=== PATIENT | male | born 1935 | race Caucasian/White ===

== ENCOUNTER 2018-08-24 23:15 | Inpatient (IN) ==
--- NOTE | 2018-08-24 23:36 | Emergency Department Note ---
Fall HPI - General Chief Complaint: Fall Stated Complaint: Fall Time Seen by Provider: 08/24/18 23:26 - History of Present Illness HPI Narrative: Patient states that he tripped and fell outside because it was dark. His complaint is to his left hip and his left knee but he does have a laceration at the base of the fifth digit also has a superficial abrasion to his left forehead he states there was no loss of consciousness but he did hit his head. He denies any neck pain. Patient is alert and oriented with no neurologic findings hip shows no deformities he has some superficial abrasions around the left knee and left footHis temperature is 97.5 the pulse is 95 respirations are 18 pulse ox 96 percent pain is an 06/18 - Related Data Home Medications Medication Instructions Recorded Confirmed Allopurinol [Zyloprim] 100 mg PO BID 08/24/18 08/24/18 Aspirin [Adult Low Dose Aspirin EC] 81 mg PO DAILY 08/24/18 08/24/18 Furosemide [Lasix] 40 mg PO BID 08/24/18 08/24/18 HYDROcodone/APAP 5/325MG [[place]wan 1 tab PO BID 08/24/18 08/24/18 5-325Mg] Insulin Detemir [Levemir] 0 unit SQ HS 08/24/18 08/24/18 Lisinopril [Zestril] 2.5 mg PO DAILY 08/24/18 08/24/18 Pravastatin [Pravachol] 40 mg PO HS 08/24/18 08/24/18 Warfarin [Coumadin] 4 mg PO DAILY 08/24/18 08/24/18 Zolpidem [Ambien] 5 mg PO HSP PRN 08/24/18 08/24/18 Allergies Allergy/AdvReac Type Severity Reaction Status Date / Time No Known Intolerances Allergy Unknown Verified 08/24/18 23:21 DIABETIC FEATURES Allergy Unknown Uncoded 04/12/15 11:56 No to Iodine Allergy Unknown Unknown Uncoded 04/12/15 11:56 No to Latex Allergy Unknown Uncoded 04/12/15 11:56 Review of Systems All systems ED: reviewed and negative except as stated. Constitutional: Reports: fever Musculoskeletal: Reports: as per HPI, other (Patient complaining of pain to his left knee and to his hip) Integumentary: Reports: as per HPI, other (Abrasions to the right foot and knee) Fall PMH - Past Medical History Medical history: Reports: DM, other (Prostate CA) Surgical history ED: Reports: other (Pacemaker, back, nephrectomy, prostate surgery) Family history: Reports: no significant family history - Social History smoking status: Never smoker Alcohol use: Reports: None Drug use: Reports: none Physical Exam Limitations: no limitations General appearance: alert Head: other (Abrasion to the left forehead) Eye: Present: normal appearance, PERRL ENT: normal exam, normal oropharynx, mucous membranes moist Neck: Present: normal inspection, full ROM, trachea midline Chest: Present: normal inspection, symmetric chest wall rise. Absent: tenderness Respiratory: Present: normal lung sounds bilaterally. Absent: respiratory distress, rales/crackles, wheezes Cardiovascular: Present: regular rate, normal rhythm, normal heart sounds. Absent: bradycardia, tachycardia, irregular rhythm Abdominal: Present: soft, normal bowel sounds. Absent: distention, tenderness, guarding, rebound, rigidity Shoulder: Present: normal inspection Arm: Present: normal inspection Elbow: Present: full ROM Forearm/Wrist: Present: normal inspection Hand: Present: normal inspection Hip/Pelvis: Present: normal inspection, tenderness. Absent: swelling, abrasion Upper leg: Present: normal inspection, full ROM. Absent: tenderness Knee: Present: tenderness, abrasion. Absent: swelling Lower leg: Present: normal inspection, full ROM. Absent: tenderness Ankle: Present: normal inspection, full ROM. Absent: tenderness Foot/toe: Present: abrasion, laceration (1 cm laceration of base of fifth toe) Neurovascular/Tendon: Present: normal capillary refill. Absent: pulse deficit Back: Present: normal inspection, full ROM Patient oriented to: Present: person, place, time Speech: Present: fluid speech Cranial nerves: EOM function (II, III, IV, ): Normal, facial sensation (V): Normal, facial palsy (VII): Normal, gag reflex (IX): Normal, spinal accessory function (XI): Normal, tongue deviation (XII): Normal Cerebellar function: normal gait Motor strength - LUE: 5/5 Motor strength - RUE: 5/5 Motor strength - LLE: 5/5 Motor strength - RLE: 5/5 Upper motor neuron exam: Babinski sign: Absent bilaterally Sensory exam upper extremity: Normal: light touch Sensory exam lower extremity: Normal: light touch DTR: 2+: patellar (L), patellar (R) Course Vital Signs Temperature 97.5 F 08/24/18 23:16 Pulse Rate 95 H 08/24/18 23:16 Respiratory Rate 18 08/24/18 23:16 Pulse Oximetry (%) 96 08/24/18 23:16 Temperature 97.5 F 08/24/18 23:16 Pulse Rate 90 08/25/18 01:15 Respiratory Rate 13 08/25/18 01:15 Blood Pressure 150/50 08/25/18 01:15 Pulse Oximetry (%) 98 08/25/18 01:15 Fall - MDM Narrative Medical decision making narrative: Patient has a fracture to the left hip. Chest x-ray was negative. Head CT neck CT is negative he x-rays are normal as well. EKG shows pacemaker. Lab tests are pending Dr. Claire contacted patient to be admitted to the hospitalists Dr. Whatley contacted Dr. report of all the laboratory tests first for admission - Lab Data Result diagrams: 08/25/18 01:00 08/25/18 01:00 Lab Results 08/24/18 Range/Units 23:35 POC Hct 36.0 L (41.0-55.0) % POC Sodium 139 (133-145) mmol/L POC Potassium 3.7 (3.3-5.1) mmol/L POC Chloride 104 (96-108) mmol/L POC Total CO2 22 (22-30) mmol/L POC BUN 37 H (8-23) mg/dl POC Creatinine 2.1 H (0.7-1.2) mg/dl POC Glucose 214 H (70-105) mg/dL POC WB Ioniz Calcium 1.08 L (1.16-1.32) mmol/L Disposition Pt seen by CRIME SCENE ANALYST/PA only: No Clinical Impression: Closed left hip fracture Disposition: Xfer As Inpt ([facility]) Condition: Fair Instructions: Hip Fracture (ED) Referrals: Joaquin Serrano DO [Primary Care Provider] -
[2018-08-25] MEDS ORDERED: ONDANSETRON 4 MG/2 ML VIAL IV ONE ×2 (01:39→14:40)
[2018-08-25] MEDS ORDERED: HYDROmorphone 2 MG/ML VIAL IV ONE (01:39)
[2018-08-25 02:14] LABS: Basophils # (Auto) 0 K/mcL (0.0-0.3); Basophils % (Auto) 0.2 % (0.0-2.0); Eosinophils # (Auto) 0.1 K/mcL (0.0-0.7); Eosinophils % (Auto) 0.4 % (0.0-7.0); Granulocytes % (Auto) 87.9 % (38.0-78.0); Lymphocytes # (Auto) 0.7 K/mcL (1.5-4.8); Mean Cell Volume 95.3 fL (80.0-100.0); Mean Corpuscular HGB Conc 33.2 g/dL (31.0-36.0); Mean Corpuscular Hemoglobin 31.6 pg (26.0-34.0); Monocytes # (Auto) 1.2 K/mcL (0.1-0.9); Monocytes % (Auto) 7.5 % (1.0-12.0); Platelet Count 229 K/mcL (140-440); RBC 4.21 M/mcL (4.50-5.90); Red Cell Distribution Width 15.2 % (11.5-14.5)
[2018-08-25 02:41] LABS: ALT/SGPT 27 U/l (0-40); Albumin 4.4 gm/dL (3.2-5.2); Albumin/Globulin Ratio 2.2 (1.0-2.3); Alkaline Phosphatase 81 U/L (39-117); Blood Urea Nitrogen 37 mg/dl (8-23)
[2018-08-25] MEDS ORDERED: ALBUTEROL SULFATE 2.5 MG/3 ML NEBULIZER NEB PRN (03:20)
[2018-08-25] MEDS ORDERED: NALOXONE HCL 0.4 MG/ML VIAL IV PRN ×2 (03:20→15:47)
[2018-08-25] MEDS ORDERED: MAGNESIUM HYDROXIDE 30 ML ORAL.SUSP PO PRN (03:20)
[2018-08-25] MEDS ORDERED: BISACODYL 10 MG SUPP.RECT PR PRN (03:20)
[2018-08-25] MEDS ORDERED: ONDANSETRON 4 MG/2 ML VIAL IV PRN ×2 (03:20→15:47)
[2018-08-25] MEDS ORDERED: DEXTROSE 50% 50 ML VIAL IV PRN (03:20)
[2018-08-25] MEDS: HYDROmorphone 2 MG/ML VIAL IV PRN ×2 (04:04→13:02)
[2018-08-25] MEDS: oxyCODONE HCL 5 MG TABLET PO PRN ×2 (04:05→09:37)
[2018-08-25 04:55] LABS: Appearance,Urine CLEAR; Bacteria,Urine 0 /hpf (0); Bilirubin,Urine NEG (NEG); Color,Urine STRAW; Glucose,Urine (UA) NEGATIVE (NEG); Leukocyte Esterase,Urine NEG /uL (NEG); Mucus,Urine FEW /hpf (0); Protein,Urine 30 mg/dL (NEG); Urine Blood 0.03 mg/dL (<0.03); Urine Hyaline Cast 3 /lpf (0-2); Urine RBC 2 /hpf (0-1); Urine Squamous Epithelial Cell 0 /hpf (0-4); Urine WBC 1 /hpf (0-4); Urobilinogen,Urine NEG (NEG)
[2018-08-25] MEDS: 0.9 % SODIUM CHLORIDE 10 ML SYRINGE IV SCH ×3 (05:37→21:33)
[2018-08-25] MEDS: INSULIN LISPRO 1 UNIT/0.01 ML UNIT SQ SCH ×3 (05:37→17:09)
--- NOTE | 2018-08-25 07:48 | Consultation ---
DATE OF CONSULTATION: 08/25/2018 REQUESTING PHYSICIAN: Dylon Barton M.D. CONSULTING PHYSICIAN: Raymond Claire M.D. REASON FOR CONSULTATION: Left hip fracture. HISTORY: This is an 82-year-old male who yesterday evening ended up tripping in the dark and injured his left hip. He also had some other superficial lacerations and abrasions. He denies loss of consciousness, just complaining of left hip pain and inability to bear weight. He was brought in to the emergency department and x-rays taken which showed a femoral neck fracture. PAST MEDICAL HISTORY: Diabetes, cardiac arrhythmia, hypercholesterolemia, history of prostate cancer, and gout. PAST SURGICAL HISTORY: Pacemaker placement, back surgery, nephrectomy, and prostate surgery. MEDICATIONS: 1. Allopurinol. 2. Aspirin 81 mg. 3. Furosemide. 4. Hydrocodone. 5. Insulin. 6. Lisinopril. 7. Warfarin. 8. Zolpidem. 9. Pravastatin. ALLERGIES: No known drug allergies. SOCIAL HISTORY: No tobacco use. No alcohol use or drug use. REVIEW OF SYSTEMS: Negative for chest pain, shortness of breath, loss of consciousness, fever, chills, bloody stool or urine. PHYSICAL EXAMINATION: VITAL SIGNS: This morning his temperature is 97.5, pulse 76, respirations 12, blood pressure 128/62, pulse ox 97% on room air. GENERAL: He appears his stated age in no acute distress. He is oriented to person, place. Mood and affect are appropriate. HEART: Regular rate and rhythm. LUNGS: Clear. EXTREMITIES: His bilateral upper extremities and right lower extremity show no evidence of significant injury other than multiple superficial skin abrasions. All three are normal to inspection, range of motion, stability and strength. His left lower extremity shows shortening and some external rotation. He has limited range of motion of the hip secondary to pain. There is gross instability. His strength is 3/5 distally. Sensation is intact to light touch to all four extremities and pedal pulses are palpable. IMAGING: His x-rays reviewed show a displaced left femoral neck fracture. IMPRESSION: Displaced left femoral neck fracture, midcervical in an 82-year-old male who is otherwise ambulatory. PLAN: I recommend we proceed with open treatment of the left femoral neck fracture with prosthetic hemiarthroplasty. Risks include, but not limited to, bleeding, possibly requiring transfusion; infection, possibly requiring implant removal, prolonged IV antibiotics; injury to nerves, blood vessels, other surrounding structures; anesthetic risks; leg length discrepancy; dislocation; fracture; DVT and pulmonary embolus risks; and the possibility of needing revision surgery. He understands and wished to proceed. We will proceed today if cleared by Hospitalist. PADDY:allison Job ID: [id number] Doc ID: [id number] Raymond Claire MD
--- NOTE | 2018-08-25 07:54 | Internal Med History&Physical ---
Medical - H&P: HPI Patient information: Note initiated : 08/25/18 at 7:52 am Service Date, if different from initiated Date: [] Patient: Jose Chanel 82 y/o M admitted on 08/25/18 for Fall. Chief Complaint: [] History of present illness: Mr. Chanel is a 82 year old M with h/o multiple medical issues, [facility]. He notes he fell yesterday on the curb, with his dog, hit his head, but did not loose consciousness. Neighbors called EMS and he came to the ER; He denies any dizziness, bowel bladder incontinence or any prodromal symptoms before the fall. The patient in the ER was afebrile, hemodynamically stable. Workup showed he had a left femur neck fracture, admitted to the hospital for further management. The patient does have a h/o afib, s/p ablation, supposed to be on coumadin, h/o CHF? on lasix bid, CKD , DM on insulin, pt denies any h/o CAD/ [place], no h/o CVA or TIA. Patient notes he can walk upto one mile on a flat surface, but usually walks approximately 2 blocks a day, able to walk up a block with incline if not too steep. No recent chest pain,shortness of breath. His Labs in ER show elevated wbc count, at 16K, hb 13.3, INR 1.1, sodium 141, potassium 3.9 BUN 37, creatinine 2.0, glucose 178. UA negative for UTI. Chest x-ray suggestive of a bibasilar atelectasis, EKG shows paced rhythm. I do not have the official reports about the neck CT or the head CT but according to the ER provider they have been interpreted as negative. Patient wishes to be full code All systems: reviewed and no additional remarkable complaints except as stated ( chr back pain,) Medical - H&P: PMH Medical history: AFib, s/p ablation, s/p pacemaker CHF CKD DM on [id number] HTN HLD Chr back pain h/o Ca Prostate. h/o Gout GABRIELA on cpap Surgical history: h/o Kidney donation to daughter. Family history: reviewed and not pertinent Social history: lives by self, recently non smoker, no etoh, no recreational drug use. Medical - H&P: Meds Home Medications Medication Instructions Recorded Confirmed Type Allopurinol [Zyloprim] 100 mg PO BID 08/24/18 08/24/18 History Aspirin [Adult Low Dose Aspirin EC] 81 mg PO DAILY 08/24/18 08/24/18 History Furosemide [Lasix] 40 mg PO BID 08/24/18 08/24/18 History HYDROcodone/APAP 5/325MG [[place] 1 tab PO BID 08/24/18 08/24/18 History 5-325Mg] Insulin Detemir [Levemir] 0 unit SQ HS 08/24/18 08/24/18 History Lisinopril [Zestril] 2.5 mg PO DAILY 08/24/18 08/24/18 History Pravastatin [Pravachol] 40 mg PO HS 08/24/18 08/24/18 History Warfarin [Coumadin] 4 mg PO DAILY 08/24/18 08/24/18 History Zolpidem [Ambien] 5 mg PO HSP PRN 08/24/18 08/24/18 History Fentanyl 12.5 mcg TD 08/25/18 History Allergies Allergy/AdvReac Type Severity Reaction Status Date / Time No Known Intolerances Allergy Unknown Verified 08/24/18 23:21 DIABETIC FEATURES Allergy Unknown Uncoded 04/12/15 11:56 No to Iodine Allergy Unknown Unknown Uncoded 04/12/15 11:56 No to Latex Allergy Unknown Uncoded 04/12/15 11:56 Medical - H&P: Exam - Constitutional Vitals: Temp Pulse Resp BP Pulse Ox 97.5 F 76 12 128/62 97 08/25/18 06:57 08/25/18 06:57 08/25/18 06:57 08/25/18 06:57 08/25/18 06:57 Exam: GENERAL: The patient is a well-developed, well-nourished in no apparent distress. Is alert and oriented x3. VITAL SIGNS: Reviewed and as noted elsewhere. HEENT: Head is normocephalic and atraumatic. Extraocular muscles are intact. Pupils are equal, round, and reactive to light. Nares appeared normal. Mouth appears any without lesions. Mucous membranes are dry. NECK: Normal to inspection, Supple, No lymphadenopathy or thyromegaly. LUNGS: Air entry equal on both sides, no wheezing, crackles or rhonchi noted. No accessory muscles of respiration HEART: Regular rate and rhythm normal, S1 and S2 heard, no Gallop, S3 or Rub Noted, No Gross murmur heard. ABDOMEN: Soft, nontender, and nondistended. Positive bowel sounds. No hepatosplenomegaly was noted. EXTREMITIES: No cyanosis, clubbing, rash, lesions or edema. NEUROLOGIC: Cranial nerves II through XII are grossly intact. Motor and Sensory System Grossly Intact PSYCHIATRIC: Normal affect, Normal Mood. Appropriate Behavior. SKIN: No ulceration or wounds noted, No jaundice, No rash noted. Medical - H&P: Reslt - Labs CBC & Chem 7: 08/25/18 01:00 08/25/18 01:00 Labs: Short CBC 08/25/18 Range/Units 01:00 WBC 16.7 H (4.5-11.0) K/mcL Hgb 13.3 L (13.5-16.5) g/dL Hct 40.1 L (41.0-55.0) % Plt Count 229 (140-440) K/mcL BMP 08/25/18 01:00 Sodium 141 Potassium 3.9 Chloride 103 Carbon Dioxide 24 BUN 37 H Creatinine 2.0 H Glucose 178 H Calcium 9.4 Liver Function 08/25/18 Range/Units 01:00 Total Bilirubin 1.4 H (0.0-1.0) mg/dL AST 22 (0-37) U/l ALT 27 (0-40) U/l Alkaline Phosphatase 81 (39-117) U/L Albumin 4.4 (3.2-5.2) gm/dL Urine 08/25/18 Range/Units 04:00 Urine Color Straw Urine Appearance Clear Urine pH 6.0 (5.0-9.0) Ur Specific [place] 1.010 (1.000-1.035) Urine Protein 30 A (NEG) mg/dL Urine Glucose (UA) Negative (NEG) mg/dL Medical - H&P: A/P - Narrative A/P Narrative: A/P Acute left femur neck fracture- Ortho consulted, Management per them, likely surgery today. Pre op Risk assessment- RCRI is 3, pt has no active symptoms to warrant emergent cardiac evaluation. MET score is > 4, Given age, comorbidities, patient remains high risk, no further optimization is needed. Afib- ON coumadin with subtherapeutic INR, will need to reinitiate coumadin at discharge, should also cover for post op DVT prophylaxis. DM- on insulin, glucose well controlled, this AM was low, start on slow d5 drip to keep glucose level up and pt well hydrated. CKD- h/o kidney donor, single kidney, baseline creat unknown, for now, IVF, avoid nephrotoxic drugs, avoid hypotensive epidsodes in the periop period CHF- Patient is on lasix 40mg bid, no e/o fluid overload, monitor, hold lasix for now, resume after surgery if labs are stable GABRIELA- cpap. CHr Back pain- resume home meds once verified for chr pain. CA prostate/ HLD/ HTN/ - Resume home meds as appropriate. DVT SCD for now, enoxaparin and coumadin post op. Full code NPO for now.
[2018-08-25] MEDS ORDERED: DEXTROSE 5%-1/2NS W/20MEQ KCL 1,000 ML IV SCH (08:00)
--- NOTE | 2018-08-25 08:06 | Cat Scan Report ---
History: Fell with head and neck injuries TECHNIQUE: The brain was imaged without contrast at 2.5 mm intervals. The radiation exposure was limited using dose reduction technology. FINDINGS: The bone windows show no skull fracture. There is no intracranial hemorrhage, cerebral edema, infarct or mass effect. There is mild atrophy. This is most apparent along the posterior superior aspect of the cerebellum. Patchy areas of decreased attenuation are present in the white matter due to age-related ischemia or degeneration. Physiologic calcifications have formed in the globus pallidus. Ventricles are normal in size allowing for atrophy. IMPRESSION: No evidence of acute head injury Age-related degenerative changes Interpreted and Authenticated by: Josh Mckeon 08/25/18
--- NOTE | 2018-08-25 08:13 | Cat Scan Report ---
History: Fell with neck injury TECHNIQUE: The neck was imaged without contrast from the skull base through the thoracic inlet. Sagittal, coronal and oblique axial reformatted images were created. Radiation exposure was limited using dose reduction technology. FINDINGS: The cervico-occipital junction is normal. No fracture is present and there is no paraspinal hematoma. Advanced degenerative changes are present. There is arthritis at the articulation of the odontoid and anterior ring of C1. The C2-3 disc space is normal. The C3-4 disc is severely narrowed and degenerated. There are spurs along the posterior border of the disc protruding into the central canal and spurring of the uncinate processes resulting in mild central canal stenosis and moderate stenosis of both neural foramina. C4-5 disc is severely narrowed and degenerated and there medium-size spurs along the posterior border. This is causing moderate central canal stenosis. There is also moderate stenosis of both neural foramina due to spurs. C5-6 disc is moderate to severely narrowed and degenerated. There are medium-size posterior spurs and there is also spur formation arising from the uncinate processes. This is causing moderate spinal canal stenosis and severe stenosis of both neural foramina, right worse than left. The C6-7 disc is normal in height. There is 2 mm grade 1 spondylolisthesis due to arthritis in the facets. There is mild central canal stenosis and mild stenosis of both neural foramina. C7-T1 disc space is mildly narrowed but there is no significant spur formation. 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
--- NOTE | 2018-08-25 08:17 | XRay Report ---
HISTORY: Fell FINDINGS: No acute fracture or dislocation are present. A subtle contour deformity is seen in the neck of the fibula. This may be from an old healed fracture. There is mild narrowing of the medial joint compartment but there is no associated spur formation or bone erosion. Lateral joint compartment is normal in width but there is mild chondrocalcinosis in the lateral meniscus. The patellofemoral joint space is normal. There is no joint effusion. There are vascular calcifications posterior to the knee. IMPRESSION: No acute fracture Interpreted and Authenticated by: Josh Mckeon 08/25/18
--- NOTE | 2018-08-25 08:18 | XRay Report ---
HISTORY: Fell FINDINGS: There is an acute transverse fracture of the left femoral neck. There is mild impaction at the fracture site and upper retraction of the shaft of the femur. The femoral head is normal and well positioned within the acetabulum. Multiple radiation implant seeds are present in the prostate. No lytic or blastic metastasis are present. There is degenerative disc disease and arthritis at L4-5 and L5-S1. There are clips in the left side of the pelvis. Numerous vascular calcifications are present in both sides of the pelvis. IMPRESSION: Fractured left femoral neck Interpreted and Authenticated by: Josh Mckeon 08/25/18
--- NOTE | 2018-08-25 08:20 | XRay Report ---
HISTORY: Hip fracture and preop for hip surgery FINDINGS: The lungs are clear and well expanded. The heart size and pulmonary vasculature are normal. There is a well-positioned pacemaker with the lead in the right ventricle. The mediastinum, bobo and pleura are normal. The right acromioclavicular joint is widened. The clavicle remains normally aligned with the acromion. There is moderate arthritis in the left acromioclavicular joint. IMPRESSION: No acute cardiopulmonary disease right acromioclavicular joint of undetermined age Interpreted and Authenticated by: Josh Mckeon 08/25/18
[2018-08-25] MEDS ORDERED: ceFAZolin 1 GM VIAL IV SCH (14:00)
[2018-08-25] MEDS ORDERED: fentaNYL 100 MCG/2 ML VIAL IV ONE (14:40)
[2018-08-25] MEDS ORDERED: DEXAMETHASONE 10 MG/ML VIAL IV ONE (14:40)
[2018-08-25] MEDS ORDERED: TRANEXAMIC ACID 1,000 MG/10 ML VIAL IV ONE (14:40)
[2018-08-25] MEDS ORDERED: MIDAZOLAM 2 MG/2 ML VIAL IV ONE (14:40)
[2018-08-25] MEDS ORDERED: SUCCINYLCHOLINE 20 MG/ML ML IV ONE (14:40)
[2018-08-25] MEDS ORDERED: LIDOCAINE HCL/PF 100 MG/5 ML SYRINGE IV ONE (14:40)
[2018-08-25] MEDS ORDERED: PROPOFOL 200 MG/20 ML VIAL IV ONE (14:40)
[2018-08-25] MEDS ORDERED: METOPROLOL TARTRATE 5 MG/5 ML VIAL IV ONE (14:40)
[2018-08-25] MEDS ORDERED: IPRATROPIUM/ALBUTEROL 3 ML AMPUL.NEB NEB PRN (15:47)
[2018-08-25] MEDS ORDERED: diphenhydrAMINE 50 MG/ML VIAL IV PRN (15:47)
[2018-08-25] MEDS ORDERED: MEPERIDINE 25 MG/ML SYRINGE IV PRN (15:47)
[2018-08-25] MEDS ORDERED: METOPROLOL TARTRATE 5 MG/5 ML VIAL IV PRN (15:47)
[2018-08-25] MEDS ORDERED: FLUMAZENIL 0.1 MG/ML ML IV PRN (15:47)
[2018-08-25] MEDS ORDERED: ATROPINE SULFATE 0.4 MG/ML VIAL IV PRN (15:47)
[2018-08-25] MEDS ORDERED: PROMETHAZINE 25 MG/ML VIAL IV PRN (15:47)
[2018-08-25] MEDS ORDERED: ACETAMINOPHEN 1,000 MG/100 ML BOTTLE IV ONE (15:47)
[2018-08-25] MEDS ORDERED: HYDROmorphone 2 MG/ML VIAL IV PRN (15:47)
[2018-08-25] MEDS ORDERED: ePHEDrine 50 MG/ML AMPUL IV PRN (15:47)
[2018-08-25] MEDS ORDERED: METHOCARBAMOL 1,000 MG/10 ML VIAL IV PRN (15:47)
--- NOTE | 2018-08-25 15:49 | Brief Operative Note ---
Date of procedure: 08/25/18 Pre-op diagnosis: Left mid cervical femoral neck fracture Post-op diagnosis: same Procedure: Open treatment left femoral neck fracture with prosthetic hemiarthroplasty Grafts/Implants: Yes (Depuy Actis 7 std stem, +5 54 unipolar head) Anesthesia: spinal, GLMA Findings: fractured femoral neck Complications: none Surgeon: Raymond Claire Dental Financial Coordinator: Adrian Meade Estimated blood loss (cc): 100 Specimens Removed/Pathology: none sent Condition: stable Disposition: PACU
[2018-08-25] MEDS ORDERED: BENZOCAINE/MENTHOL 1 LOZENGE PO PRN (15:50)
[2018-08-25] MEDS ORDERED: FLEETS ADULT ENEMA PR PRN (15:50)
[2018-08-25] MEDS ORDERED: 0.9 % SODIUM CHLORIDE 1,000 ML IV SCH (16:00)
[2018-08-25] MEDS ORDERED: LACTATED RINGERS 1,000 ML IV SCH (16:00)
[2018-08-25] MEDS: fentaNYL 100 MCG/2 ML VIAL IV PRN ×3 (16:09→16:26)
--- NOTE | 2018-08-25 16:56 | XRay Report ---
History: Postop hemiarthroplasty following hip fracture FINDINGS: Patient has a well positioned unipolar left hip prosthesis. There is no fracture. Numerous radiation implant seeds are present in the prostate. No lytic or blastic metastasis are detected. IMPRESSION: Well-positioned left hip prosthesis Interpreted and Authenticated by: Josh Mckeon 08/25/18
[2018-08-25] MEDS: ceFAZolin 1 GM VIAL IV SCH (21:24)
[2018-08-25] MEDS: DOCUSATE SODIUM 100 MG CAPSULE PO SCH (21:25)
[2018-08-25] MEDS: SENNOSIDES 1 TABLET PO SCH (21:25)
[2018-08-25] MEDS ORDERED: INSULIN LISPRO 1 UNIT/0.01 ML UNIT SQ SCH (22:00)
[2018-08-25] MEDS ORDERED: WARFARIN 4 MG TABLET PO ONE (22:00)
[2018-08-25] MEDS ORDERED: INSULIN LISPRO 1 UNIT/0.01 ML UNIT SQ ONE (22:21)
[2018-08-26] MEDS: oxyCODONE HCL 5 MG TABLET PO PRN ×5 (00:22→23:48)
[2018-08-26] MEDS: HYDROmorphone 2 MG/ML VIAL IV PRN ×2 (00:57→12:02)
[2018-08-26] MEDS: 0.9 % SODIUM CHLORIDE 10 ML SYRINGE IV SCH ×3 (05:50→20:28)
[2018-08-26] MEDS: ceFAZolin 1 GM VIAL IV SCH (05:50)
[2018-08-26] MEDS ORDERED: INSULIN LISPRO 1 UNIT/0.01 ML UNIT SQ SCH (07:30)
--- NOTE | 2018-08-26 07:54 | Orthopedic Progress Note ---
Orthopedics - Auxillary Note - Subjective Patient Information: Note initiated : 08/26/18 at 7:53 am Service Date, if different from initiated Date: [] Patient: Jose Chanel 82 y/o M admitted on 08/25/18 for Fall. Chief Complaint: Mild to moderate L hip pain. Mild confusion. bandages c/d/i nvi-distal Vital Signs Temp Pulse Resp BP Pulse Ox 08/26/18 07:34 97.9 F 70 16 147/64 96 08/26/18 04:00 98.0 F 72 16 169/71 100 08/25/18 22:44 98.7 F 70 16 148/60 100 08/25/18 19:50 97.5 F 70 16 140/62 95 08/25/18 18:51 75 139/65 93 08/25/18 18:22 72 129/55 08/25/18 18:00 75 139/62 99 08/25/18 17:20 70 135/58 96 08/25/18 17:05 70 134/58 98 08/25/18 16:50 98.8 F 70 14 147/64 95 08/25/18 16:45 98.9 F 77 21 157/62 94 08/25/18 16:35 98.8 F 79 18 152/64 94 08/25/18 16:25 98.4 F 79 13 144/60 95 08/25/18 16:20 98.8 F 80 12 143/54 94 08/25/18 16:15 76 17 167/63 91 08/25/18 16:10 78 18 156/68 94 08/25/18 16:07 98.2 F 77 16 130/77 99 08/25/18 11:35 98.2 F 77 12 128/69 96 Intake and Output 08/25/18 08/26/18 08/26/18 21:59 05:59 13:59 Intake Total 1950 / 1950 1450 / 1450 Output Total 1100 / 1100 625 / 625 Balance 850 / 850 825 / 825 Intake: IV 350 / 350 1000 / 1000 Dextrose 5%-1/2Ns W/20Meq KCl 1 250 / 250 ,000 ml @ 50 mls/hr IV .Q20H [facility] Rx#:[id number] Oral 450 / 450 IV - Manual Only 1600 / 1600 Output: Urine Catheter Amount 1000 / 1000 625 / 625 Estimated Blood Loss 100 / 100 Other: Urine Appearance Clear Uretheral (Jacobo) Clear Urine Color Bright Yellow Bright Yellow Uretheral (Jacobo) Bright Yellow Urine Odor Normal Normal Uretheral (Jacobo) Normal # Bowel Movements 0 Weight 196 lb 192 lb 8 oz Laboratory Results - last 24 hr 08/25/18 08/26/18 08/26/18 08:00 04:05 04:05 Hgb 12.3 L Hct 36.5 L PT 16.1 H INR 1.3 H Procalcitonin 0.16 s/p l glen hip arthroplasty-stable mobilize with PT discharge to SNF 1-2 days per hospitalist
[2018-08-26] MEDS: INSULIN LISPRO 1 UNIT/0.01 ML UNIT SQ SCH ×4 (08:04→20:28)
[2018-08-26] MEDS: DOCUSATE SODIUM 100 MG CAPSULE PO SCH ×2 (08:04→20:30)
[2018-08-26 08:49] LABS: Basophils # (Auto) 0 K/mcL (0.0-0.3); Basophils % (Auto) 0 % (0.0-2.0); Eosinophils # (Auto) 0 K/mcL (0.0-0.7); Eosinophils % (Auto) 0 % (0.0-7.0); Granulocytes % (Auto) 85.5 % (38.0-78.0); Lymphocytes # (Auto) 1.1 K/mcL (1.5-4.8); Lymphocytes % (Auto) 5.7 % (15.5-49.0); Mean Cell Volume 97.3 fL (80.0-100.0); Mean Corpuscular HGB Conc 32.9 g/dL (31.0-36.0); Monocytes # (Auto) 1.7 K/mcL (0.1-0.9); Monocytes % (Auto) 8.8 % (1.0-12.0); Platelet Count 249 K/mcL (140-440); RBC 4.21 M/mcL (4.50-5.90); Red Cell Distribution Width 15.7 % (11.5-14.5)
[2018-08-26 09:09] LABS: Blood Urea Nitrogen 36 mg/dl (8-23)
[2018-08-26] MEDS ORDERED: WARFARIN 4 MG TABLET PO ONE (14:00)
[2018-08-26] MEDS ORDERED: ZOLPIDEM 5 MG TABLET PO PRN (15:46)
--- NOTE | 2018-08-26 15:50 | Internal Med Progress Note ---
Medical - PN: Subj Patient information: Note initiated : 08/26/18 at 3:48 pm Service Date, if different from initiated Date: [] Patient: Jose Chanel a 82 y/o M admitted on 08/25/18 for Fall/Left Femur Neck Fracture. Chief Complaint: [] Interval history: Mr. Chanel is a 82 year old M with h/o multiple medical issues, presents to the ER overnight after a mech fall. He notes he fell yesterday on the curb, with his dog, hit his head, but did not loose consciousness. Neighbors called EMS and he came to the ER; He denies any dizziness, bowel bladder incontinence or any prodromal symptoms before the fall. The patient in the ER was afebrile, hemodynamically stable. Workup showed he had a left femur neck fracture, admitted to the hospital for further management. The patient does have a h/o afib, s/p ablation, supposed to be on coumadin, h/o CHF? on lasix bid, CKD , DM on insulin, pt denies any h/o CAD/ ME, no h/o CVA or TIA. Patient notes he can walk upto one mile on a flat surface, but usually walks approximately 2 blocks a day, able to walk up a block with incline if not too steep. No recent chest pain,shortness of breath. His Labs in ER show elevated wbc count, at 16K, hb 13.3, INR 1.1, sodium 141, potassium 3.9 BUN 37, creatinine 2.0, glucose 178. UA negative for UTI. Chest x-ray suggestive of a bibasilar atelectasis, EKG shows paced rhythm. I do not have the official reports about the neck CT or the head CT but according to the ER provider they have been interpreted as negative. Patient wishes to be full code 08/26 Patient seen and examined, no acute overnight events. Creatinine slightly worse 2.0-2.2. Patient overall doing well. Mildly confused. Cooperative with care. Home medications resumed Pertinent ROS: Denies headache, dizziness Denies chest pain, palpitations Denies cough or shortness of breath Denies abdominal pain, nausea or vomiting. - Constitutional Vitals: Vital Signs Temp Pulse Resp BP Pulse Ox 98.0 F 74 16 135/69 95 08/26/18 11:36 08/26/18 11:36 08/26/18 07:34 08/26/18 11:36 08/26/18 11:36 Period Temp Pulse Resp BP Sys/Payne Pulse Ox Last 24 Hr 97.5 F-98.9 F 70-80 12-21 129-169/54-77 91-100 Intake and Output 08/26/18 08/26/18 08/26/18 05:59 13:59 21:59 Intake Total 1450 / 1450 920 / 920 Output Total 625 / 625 600 / 600 Balance 825 / 825 320 / 320 Weight 192 lb 8 oz 192 lb 8 oz Patient Weight 08/27/18 05:59 Weight 192 lb 8 oz Intake & Output: Intake & Output 08/26/18 08/26/18 08/26/18 05:59 13:59 21:59 Intake Total 1450 / 1450 920 / 920 Output Total 625 / 625 600 / 600 Balance 825 / 825 320 / 320 Weight 192 lb 8 oz 192 lb 8 oz Intake: IV 1000 / 1000 Oral 450 / 450 920 / 920 Output: Urine Catheter Amount 625 / 625 600 / 600 Other: Meal Breakfast Percent of Meal Consumed 100% Urine Appearance Uretheral (Jacobo) Clear Urine Color Bright Yellow Pale Uretheral (Jacobo) Pale Urine Odor Normal Normal Uretheral (Jacobo) Normal # Bowel Movements 0 Exam: Constitutional; Afebrile, cooperative, alert, not in distress. Eyes- No icterus, , No periorbital swelling Ears- Ext ear normal, hearing normal to conversation. Neck- Midline trachea, supple Respiratory system: Air Entry equal on both sides, No crackles or wheezing, no rhonchi. CVS- Rate rhythm regular, S1,S2 heard, no gallop, no rub. 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 Medical - PN: Obj Da - Labs CBC & Chem 7: 08/26/18 08:00 08/26/18 08:00 Labs: Abnormal Lab Results 08/26/18 08/26/18 08/26/18 08:00 08:00 04:05 WBC 19.2 H RBC 4.21 L Hgb Hct POC Hct RDW 15.7 H Gran % 85.5 H Lymph % (Auto) 5.7 L Gran # 16.4 H Lymph # (Auto) 1.1 L [place] # (Auto) 1.7 H PT 16.1 H INR 1.3 H Carbon Dioxide 16 L Anion Gap 23.0 H POC BUN BUN 36 H Creatinine 2.2 H POC Creatinine Glucose 221 H POC Glucose POC WB Ioniz Calcium Total Bilirubin Globulin Urine Protein Urine Occult Blood Urine RBC Hyaline Casts 08/26/18 08/25/18 08/25/18 04:05 04:00 01:00 WBC RBC Hgb 12.3 L Hct 36.5 L POC Hct RDW Gran % Lymph % (Auto) Gran # Lymph # (Auto) [place] # (Auto) PT INR Carbon Dioxide Anion Gap POC BUN BUN 37 H Creatinine 2.0 H POC Creatinine Glucose 178 H POC Glucose POC WB Ioniz Calcium Total Bilirubin 1.4 H Globulin 2.0 L Urine Protein 30 A Urine Occult Blood 0.03 A Urine RBC 2 H Hyaline Casts 3 H 08/25/18 08/25/18 08/24/18 01:00 01:00 23:35 WBC 16.7 H RBC 4.21 L Hgb 13.3 L Hct 40.1 L POC Hct 36.0 L RDW 15.2 H Gran % 87.9 H Lymph % (Auto) 4.0 L Gran # 14.7 H Lymph # (Auto) 0.7 L [place] # (Auto) 1.2 H PT 14.7 H INR Carbon Dioxide Anion Gap POC BUN 37 H BUN Creatinine POC Creatinine 2.1 H Glucose POC Glucose 214 H POC WB Ioniz Calcium 1.08 L Total Bilirubin Globulin Urine Protein Urine Occult Blood Urine RBC Hyaline Casts Meds: Medications Acetaminophen (Tylenol) 650 mg PO Q6HP PRN PRN Reason: PAIN/FEVER > 101 Albuterol Sulfate (Ventolin) 2.5 mg NEB Q2HP PRN PRN Reason: Shortness Of Breath Allopurinol (Zyloprim) 100 mg PO BID TARUN Bisacodyl (Dulcolax) 10 mg ND Q2-3DAYS PRN PRN Reason: Constipation Dextrose (Dextrose 50%) 0 ml IV UD PRN PRN Reason: Hypoglycemia Diagnostic Test (Pha) (Accu-Chek) 1 each FS ACHS [facility] Last Admin: 08/26/18 11:45 Dose: 1 each Docusate Sodium (Colace) 100 mg PO BID [facility] Last Admin: 08/26/18 08:04 Dose: 100 mg Furosemide (Lasix) 40 mg PO BID [facility] Hydromorphone HCl (Dilaudid) 0.5 mg IV Q2HP PRN PRN Reason: PAIN LEVEL > 6 Last Admin: 08/26/18 12:02 Dose: 0.5 mg Insulin Human Lispro (Humalog) 0 unit SQ ACHS [facility]; Protocol Last Admin: 08/26/18 11:55 Dose: 6 unit Lisinopril (Zestril) 2.5 mg PO DAILY [facility] Magnesium Hydroxide (Milk Of Magnesia) 30 ml PO DAILYP PRN PRN Reason: Constipation Naloxone HCl (Narcan) 0.1 mg IV Q2MIN PRN PRN Reason: Opiate Reversal Non-Formulary Medication (Aspirin [Adult Low Dose Aspirin Ec]) 81 mg PO DAILY [facility] Non-Formulary Medication (Insulin Detemir [Levemir]) 49 unit SQ HS TARUN Ondansetron HCl (Zofran) 4 mg IV Q6HP PRN PRN Reason: Nausea And Vomiting Oxycodone HCl (Roxicodone) 5 mg PO Q4HP PRN PRN Reason: PAIN LEVEL 3-6 Last Admin: 08/26/18 09:53 Dose: 5 mg Pravastatin Sodium (Pravachol) 40 mg PO HS [facility] Senna (Senokot) 2 tab PO HS [facility] Last Admin: 08/25/18 21:25 Dose: 2 tab Sodium Biphosphate/Sodium Phosphate (Fleets Adult) 1 dose ND Q3-4DAYS PRN PRN Reason: Constipation Sodium Chloride (Saline Flush) 10 ml IV Q8 [facility] Last Admin: 08/26/18 05:50 Dose: 10 ml Throat Lozenges (Cepacol) 1 lozenge PO PRN PRN PRN Reason: Sore Throat Warfarin Sodium (Coumadin Per Pharmacy) 1 order PO UD [facility] Zolpidem Tartrate (Ambien) 10 mg PO HSP PRN PRN Reason: Insomnia Medical - PN: A/P - Time Spent With Patient Total time spent is greater than 50% in coordination of care (as documented) at patient's floor/unit and/or counseling patient: - Narrative A/P Narrative: A/P Acute left femur neck fracture- Ortho consulted, Management per them, Afib- ON coumadin with subtherapeutic INR, coumadin reinitiated DM- on insulin, glucose well high, pt tolerating po now, resume home dose of levemir, ssi insulin. CKD- h/o kidney donor, single kidney, baseline creat unknown, for now, IVF, avoid nephrotoxic drugs, avoid hypotensive epidsodes in the periop period. CReat mildly worse, monitor. CHF- Patient is on lasix 40mg bid, no e/o fluid overload, resume lasix , john inhibitors. GABRIELA- cpap. CHr Back pain- short acting oral meds for now, hold fentanyl. CA prostate/ HLD/ HTN/ - Resume home meds as appropriate. DVT SCD for now, enoxaparin and coumadin post op. Full code carb consistent diet.
[2018-08-26] MEDS: ALLOPURINOL 100 MG TABLET PO SCH (20:29)
[2018-08-26] MEDS: INSULIN GLARGINE, HUMAN 1 UNIT/0.01 ML SQ SCH (20:29)
[2018-08-26] MEDS: SIMVASTATIN 20 MG TABLET PO SCH (20:29)
[2018-08-26] MEDS: SENNOSIDES 1 TABLET PO SCH (20:29)
[2018-08-26] MEDS: FUROSEMIDE 40 MG TABLET PO SCH (20:30)
[2018-08-26] MEDS: ACETAMINOPHEN 325 MG TABLET PO PRN (23:49)
[2018-08-27] MEDS: oxyCODONE HCL 5 MG TABLET PO PRN ×5 (03:57→22:29)
[2018-08-27] MEDS: 0.9 % SODIUM CHLORIDE 10 ML SYRINGE IV SCH ×3 (07:16→20:36)
[2018-08-27] MEDS: INSULIN LISPRO 1 UNIT/0.01 ML UNIT SQ SCH ×4 (08:02→20:34)
[2018-08-27] MEDS: ASPIRIN 81 MG TAB.CHEW PO SCH (08:03)
[2018-08-27] MEDS: LISINOPRIL 5 MG TABLET PO SCH (08:03)
[2018-08-27] MEDS: FUROSEMIDE 40 MG TABLET PO SCH ×2 (08:04→20:35)
[2018-08-27] MEDS: ALLOPURINOL 100 MG TABLET PO SCH ×2 (08:06→20:35)
[2018-08-27] MEDS: DOCUSATE SODIUM 100 MG CAPSULE PO SCH ×2 (08:07→20:35)
[2018-08-27 08:17] LABS: Blood Urea Nitrogen 41 mg/dl (8-23)
--- NOTE | 2018-08-27 08:33 | Orthopedic Progress Note ---
Subjective Patient information: Note initiated : 08/27/18 at 8:30 am Service Date, if different from initiated Date: [] Patient: Jose Chanel 82 y/o M admitted on 08/25/18 for Fall/Left Femur Neck Fracture. Chief Complaint: [] Principal diagnosis: femoral neck fracture Interval history: No pain sitting, pretty sore when walking Objective Vital signs: Vital Signs Temp Pulse Resp BP Pulse Ox 08/27/18 08:00 98.3 F 18 132/67 96 08/27/18 04:00 98.8 F 70 16 134/65 98 08/27/18 00:00 97.8 F 78 20 140/69 98 08/26/18 20:00 98.3 F 78 18 140/68 97 08/26/18 16:12 98.5 F 81 16 141/72 96 08/26/18 11:36 98.0 F 74 135/69 95 Intake and Output 08/26/18 08/27/18 08/27/18 21:59 05:59 13:59 Intake Total 100 / 100 550 / 550 Output Total 100 / 100 650 / 650 550 / 550 Balance 0 / 0 -100 / -100 -550 / -550 Intake: Oral 100 / 100 550 / 550 Output: Void Amount 100 / 100 650 / 650 550 / 550 Other: Meal Dinner Percent of Meal Consumed 10% Feeding Ability Independent Urine Appearance Clear Clear Urine Color Pale Pale Pale Urine Odor Normal Weight 195 lb 8 oz Intake & Output: Intake & Output 08/26/18 08/27/18 08/27/18 21:59 05:59 13:59 Intake Total 100 / 100 550 / 550 Output Total 100 / 100 650 / 650 550 / 550 Balance 0 / 0 -100 / -100 -550 / -550 Weight 195 lb 8 oz Intake: Oral 100 / 100 550 / 550 Output: Void Amount 100 / 100 650 / 650 550 / 550 Other: Meal Dinner Percent of Meal Consumed 10% Feeding Ability Independent Urine Appearance Clear Clear Urine Color Pale Pale Pale Urine Odor Normal Dressing: Yes clean, Yes dry, Yes intact Weight bearing status: as tolerated Neurological exam IM: Yes alert - Labs CBC & BMP: 08/27/18 04:20 08/27/18 07:01 Labs: Orthopedic Labs 08/27/18 08/26/18 08/25/18 04:20 04:05 01:00 PT 18.5 H 16.1 H 14.7 H INR 1.5 H 1.3 H 1.1 08/27/18 08/26/18 08/26/18 04:20 08:00 04:05 Hgb 12.2 L 13.5 12.3 L Hct 36.2 L 41.0 36.5 L 08/25/18 01:00 Hgb 13.3 L Hct 40.1 L Assessment and Plan (1) Closed left hip fracture POD#2 s/p Left hip hemiarthroplasty for femoral neck fracture-ortho stable -OK to d/c from ortho standpoint -WBAT with posterior dislocation precautions per total hip protocol -place 7 day dressing today, robert out 14 days post op -f/u ortho in 1 month Status: Acute
--- NOTE | 2018-08-27 08:36 | Discharge Summary ---
Ortho Discharge - [facility] - Patient Instructions Diet: Regular Diet Activity: weight bearing as tolerated Total Hip Protocol: Follow activity instructions as provided by Physical Therapy. Dressing Care: Aquacel Ag - leave on for 5 days Patient Education: Hip Fracture (ED) - Problem Maintenance (1) Closed left hip fracture Status: Acute - Follow Up Plan Follow Up Appointments: Joaquin Serrano DO [Primary Care Provider] - Raymond Claire MD [Physician] - Disposition: [facility] Prognosis: Fair Rehab Potential: Fair I certify that the patient requires SNF services: Yes Overall status at discharge: patient is not back to baseline - Orders For Discharge Additional Discharge Orders: Physical Therapy at Discharge - [facility] Location: None 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
[2018-08-27] MEDS: TAMSULOSIN 0.4 MG CAPSULE PO SCH (09:08)
--- NOTE | 2018-08-27 09:43 | Operative Note ---
DATE OF OPERATION: 08/25/2018 PREOPERATIVE DIAGNOSIS: Left midcervical femoral neck fracture, closed. POSTOPERATIVE DIAGNOSIS: Left midcervical femoral neck fracture, closed. PROCEDURE PERFORMED: Open treatment of left closed femoral neck fracture with prosthetic hemiarthroplasty placing a DePuy Actis size 7 standard offset femoral stem, a +5 neck with a 54 unipolar head. SURGEON: Raymond Claire M.D. BRASS PLATER: Kenneth Meade PA-C. ANESTHESIA: Spinal plus general. DRAINS: None. SPECIMENS: Femoral head which was discarded. BLOOD LOSS: 100 mL. POSTOPERATIVE CONDITION: Stable. INDICATIONS FOR SURGERY: This is an 82-year-old ambulatory male who stepped off the curb the night prior and fell injuring his left hip. He had severe pain and inability to bear weight. He was taken to the emergency department and x-rays showed a displaced femoral neck fracture. FINDINGS AT SURGERY: He did have a displaced acute midcervical femoral neck fracture. Post implantation showed good limb lengths and joint stability. PROCEDURE IN DETAIL: The patient had been seen preoperatively. Informed consent had been obtained after discussion of risks and benefits of surgery. Risks including, but not limited to, bleeding, possibly requiring transfusion; infection, possibly requiring implant removal and prolonged IV antibiotics; injury to nerves, blood vessels, other surrounding structures; anesthetic risks; dislocation; fracture; DVT and pulmonary embolus risks; and the possibility of needing further revision joint surgery. He understood these risks and wished to proceed. Correct operative site was marked and then patient was taken to the operating room. General anesthesia was induced. The patient was placed in the right lateral decubitus position and pressure points carefully padded. The left hip and groin were then carefully prepped and draped in normal sterile fashion, and a time-out was performed verifying patient name, operative site, and plan. Standard posterior lateral incision was made with a scalpel through skin and subcutaneous tissue. Hemostasis was obtained with Bovie cautery. We continued sharp dissection down onto the IT band and then a Booth elevator was used to expose this plane. We then irrigated Irrisept and then incised the IT band in line with the skin incision. Charnley retractor was placed. We then used a lap sponge to expose the short external rotators. We incised the capsule and released the short external rotators as one and suctioned out fracture hematoma. We then used the oscillating saw to make a freshening cut on the femoral neck, and then a corkscrew was placed in the femoral head, and the head was removed. This did not fit through a 54 sizer, but it did fit through a 55, so we chose a 54 trial. The acetabulum was cleaned of bone fragments and then the trial placed. It fit nicely, so we went ahead and removed this. We exposed the proximal femur. A box osteotome was used to enter and then a handheld canal-finding awl and then we began sequentially broaching with the Actis broaches until a size 7. The standard neck trial was placed. We started with a -3. This was definitely too short, so we went ahead and dislocated. We opened a 7 Actis stem. The femoral canal was irrigated with Irrisept, after a minute it was pulse lavaged with saline. The stem was impacted until it seated down on the neck cut. We then trialed with a +5 head ball. This had much better hip tension, and we checked leg lengths which were nearly equal, maybe slightly lengthened. We redislocated. We removed the trial head. A +5 neck spacer with a 54 unipolar head was assembled on the back table. The stem was carefully cleaned and dried and the head ball briskly impacted with several blows of the mallet. We then reduced the hip. It was placed on a padded Pratt. We irrigated with Irrisept again, after a minute pulse lavaged with saline. We did verify a double-check of our stability which was good. We used a #5 FiberWire [id number] to close the posterior capsule. We then used #1 Vicryl running stitches to close the IT band. Irrisept was irrigated one more time, after a minute pulse lavage, and then 2-0 Monocryl used for subcutaneous and robert for skin. Xeroform and sterile dressing were applied. The patient was turned supine. Abductor pillow was placed. He was then awakened, extubated, and transferred to recovery in stable condition. PADDY:allison Job ID: [id number] Doc ID: [id number] Raymond Claire MD
--- NOTE | 2018-08-27 10:40 | Internal Med Progress Note ---
Medical - PN: Subj Patient information: Note initiated : 08/27/18 at 10:38 am Service Date, if different from initiated Date: [] Patient: Jose Chanel a 82 y/o M admitted on 08/25/18 for Fall/Left Femur Neck Fracture. Chief Complaint: [] Interval history: Mr. Chanel is a 82 year old M with h/o multiple medical issues, presents to the ER overnight after a mech fall. He notes he fell yesterday on the curb, with his dog, hit his head, but did not loose consciousness. Neighbors called EMS and he came to the ER; He denies any dizziness, bowel bladder incontinence or any prodromal symptoms before the fall. The patient in the ER was afebrile, hemodynamically stable. Workup showed he had a left femur neck fracture, admitted to the hospital for further management. The patient does have a h/o afib, s/p ablation, supposed to be on coumadin, h/o CHF? on lasix bid, CKD , DM on insulin, pt denies any h/o CAD/ CT, no h/o CVA or TIA. Patient notes he can walk upto one mile on a flat surface, but usually walks approximately 2 blocks a day, able to walk up a block with incline if not too steep. No recent chest pain,shortness of breath. His Labs in ER show elevated wbc count, at 16K, hb 13.3, INR 1.1, sodium 141, potassium 3.9 BUN 37, creatinine 2.0, glucose 178. UA negative for UTI. Chest x-ray suggestive of a bibasilar atelectasis, EKG shows paced rhythm. I do not have the official reports about the neck CT or the head CT but according to the ER provider they have been interpreted as negative. Patient wishes to be full code 08/26 Patient seen and examined, no acute overnight events. Creatinine slightly worse 2.0-2.2. Patient overall doing well. Mildly confused. Cooperative with care. Home medications resumed 08/27 Patient seen and examined, no acute overnight events. Tolerating p.o. diet well has no complaints. Labs stable hemoglobin, creatinine improved to 2.0. Ortho has cleared pt for discharge, awaiting placement to SNF Pertinent ROS: Denies headache, dizziness Denies chest pain, palpitations Denies cough or shortness of breath Denies abdominal pain, nausea or vomiting. - Constitutional Vitals: Vital Signs Temp Pulse Resp BP Pulse Ox 98.3 F 70 18 132/67 96 08/27/18 08:00 08/27/18 04:00 08/27/18 08:00 08/27/18 08:00 08/27/18 08:00 Period Temp Pulse Resp BP Sys/Payne Pulse Ox Last 24 Hr 97.8 F-98.8 F 70-81 16-20 132-141/65-72 95-98 Intake and Output 08/26/18 08/27/18 08/27/18 21:59 05:59 13:59 Intake Total 100 / 100 550 / 550 120 / 120 Output Total 100 / 100 650 / 650 550 / 550 Balance 0 / 0 -100 / -100 -430 / -430 Weight 195 lb 8 oz Intake & Output: Intake & Output 08/26/18 08/27/18 08/27/18 21:59 05:59 13:59 Intake Total 100 / 100 550 / 550 120 / 120 Output Total 100 / 100 650 / 650 550 / 550 Balance 0 / 0 -100 / -100 -430 / -430 Weight 195 lb 8 oz Intake: Oral 100 / 100 550 / 550 120 / 120 Output: Void Amount 100 / 100 650 / 650 550 / 550 Other: Meal Dinner Breakfast Percent of Meal Consumed 10% 90% Feeding Ability Independent Independent Urine Appearance Clear Clear Urine Color Pale Pale Pale Urine Odor Normal Exam: Constitutional; Afebrile, cooperative, alert, not in distress. Eyes- No icterus, , No periorbital swelling Ears- Ext ear normal, hearing normal to conversation. Neck- Midline trachea, supple Respiratory system: Air Entry equal on both sides, No crackles or wheezing, no rhonchi. CVS- Rate rhythm regular, S1,S2 heard, no gallop, no rub. 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 Medical - PN: Obj Da - Labs CBC & Chem 7: 08/27/18 04:20 08/27/18 07:01 Labs: Abnormal Lab Results 08/27/18 08/27/18 08/27/18 07:01 04:20 04:20 WBC RBC Hgb 12.2 L Hct 36.2 L POC Hct RDW Gran % Lymph % (Auto) Gran # Lymph # (Auto) [place] # (Auto) PT 18.5 H INR 1.5 H Carbon Dioxide 21 L Anion Gap POC BUN BUN 41 H Creatinine 2.0 H POC Creatinine Glucose 162 H POC Glucose POC WB Ioniz Calcium Total Bilirubin Globulin Urine Protein Urine Occult Blood Urine RBC Hyaline Casts 08/26/18 08/26/18 08/26/18 08:00 08:00 04:05 WBC 19.2 H RBC 4.21 L Hgb Hct POC Hct RDW 15.7 H Gran % 85.5 H Lymph % (Auto) 5.7 L Gran # 16.4 H Lymph # (Auto) 1.1 L [place] # (Auto) 1.7 H PT 16.1 H INR 1.3 H Carbon Dioxide 16 L Anion Gap 23.0 H POC BUN BUN 36 H Creatinine 2.2 H POC Creatinine Glucose 221 H POC Glucose POC WB Ioniz Calcium Total Bilirubin Globulin Urine Protein Urine Occult Blood Urine RBC Hyaline Casts 08/26/18 08/25/18 08/25/18 04:05 04:00 01:00 WBC RBC Hgb 12.3 L Hct 36.5 L POC Hct RDW Gran % Lymph % (Auto) Gran # Lymph # (Auto) [place] # (Auto) PT INR Carbon Dioxide Anion Gap POC BUN BUN 37 H Creatinine 2.0 H POC Creatinine Glucose 178 H POC Glucose POC WB Ioniz Calcium Total Bilirubin 1.4 H Globulin 2.0 L Urine Protein 30 A Urine Occult Blood 0.03 A Urine RBC 2 H Hyaline Casts 3 H 08/25/18 08/25/18 08/24/18 01:00 01:00 23:35 WBC 16.7 H RBC 4.21 L Hgb 13.3 L Hct 40.1 L POC Hct 36.0 L RDW 15.2 H Gran % 87.9 H Lymph % (Auto) 4.0 L Gran # 14.7 H Lymph # (Auto) 0.7 L [place] # (Auto) 1.2 H PT 14.7 H INR Carbon Dioxide Anion Gap POC BUN 37 H BUN Creatinine POC Creatinine 2.1 H Glucose POC Glucose 214 H POC WB Ioniz Calcium 1.08 L Total Bilirubin Globulin Urine Protein Urine Occult Blood Urine RBC Hyaline Casts Meds: Medications Acetaminophen (Tylenol) 650 mg PO Q6HP PRN PRN Reason: PAIN/FEVER > 101 Last Admin: 08/26/18 23:49 Dose: 650 mg Albuterol Sulfate (Ventolin) 2.5 mg NEB Q2HP PRN PRN Reason: Shortness Of Breath Allopurinol (Zyloprim) 100 mg PO BID [facility] Last Admin: 08/27/18 08:06 Dose: 100 mg Aspirin (Aspirin) 81 mg PO DAILY [facility] Last Admin: 08/27/18 08:03 Dose: 81 mg Bisacodyl (Dulcolax) 10 mg AR Q2-3DAYS PRN PRN Reason: Constipation Dextrose (Dextrose 50%) 0 ml IV UD PRN PRN Reason: Hypoglycemia Diagnostic Test (Pha) (Accu-Chek) 1 each FS [facility] Last Admin: 08/27/18 07:17 Dose: 1 each Docusate Sodium (Colace) 100 mg PO BID [facility] Last Admin: 08/27/18 08:07 Dose: 100 mg Furosemide (Lasix) 40 mg PO BID [facility] Last Admin: 08/27/18 08:04 Dose: 40 mg Hydromorphone HCl (Dilaudid) 0.5 mg IV Q2HP PRN PRN Reason: PAIN LEVEL > 6 Last Admin: 08/26/18 12:02 Dose: 0.5 mg Insulin Glargine (Lantus) 49 unit SQ [facility] Last Admin: 08/26/18 20:29 Dose: 49 unit Insulin Human Lispro (Humalog) 0 unit SQ [facility]; Protocol Last Admin: 08/27/18 08:02 Dose: 1 unit Lisinopril (Zestril) 2.5 mg PO DAILY [facility] Last Admin: 08/27/18 08:03 Dose: 2.5 mg Magnesium Hydroxide (Milk Of Magnesia) 30 ml PO DAILYP PRN PRN Reason: Constipation Naloxone HCl (Narcan) 0.1 mg IV Q2MIN PRN PRN Reason: Opiate Reversal Ondansetron HCl (Zofran) 4 mg IV Q6HP PRN PRN Reason: Nausea And Vomiting Oxycodone HCl (Roxicodone) 5 mg PO Q4HP PRN PRN Reason: PAIN LEVEL 3-6 Last Admin: 08/27/18 08:04 Dose: 5 mg Senna (Senokot) 2 tab PO [facility] Last Admin: 08/26/18 20:29 Dose: 2 tab Simvastatin (Zocor) 20 mg PO HS [facility] Last Admin: 08/26/18 20:29 Dose: 20 mg Sodium Biphosphate/Sodium Phosphate (Fleets Adult) 1 dose AR Q3-4DAYS PRN PRN Reason: Constipation Sodium Chloride (Saline Flush) 10 ml IV Q8 [facility] Last Admin: 08/27/18 07:16 Dose: 10 ml Tamsulosin HCl (Flomax) 0.4 mg PO DAILY [facility] Last Admin: 08/27/18 09:08 Dose: 0.4 mg Throat Lozenges (Cepacol) 1 lozenge PO PRN PRN PRN Reason: Sore Throat Warfarin Sodium (Coumadin Per Pharmacy) 1 order PO UD TARUN Zolpidem Tartrate (Ambien) 10 mg PO HSP PRN PRN Reason: Insomnia Medical - PN: A/P - Time Spent With Patient Total time spent is greater than 50% in coordination of care (as documented) at patient's floor/unit and/or counseling patient: - Narrative A/P Narrative: A/P Acute left femur neck fracture- Ortho consulted, Management per them, Afib- ON coumadin with subtherapeutic INR, coumadin reinitiated DM- on insulin, glucose well high, pt tolerating po now, resume home dose of levemir, ssi insulin. CKD- h/o kidney donor, single kidney, baseline creat unknown, for now, IVF, avoid nephrotoxic drugs, avoid hypotensive epidsodes in the periop period. CReat back to 2.0 CHF- Patient is on lasix 40mg bid, no e/o fluid overload, resume lasix , john inhibitors. creat stable, GABRIELA- cpap. CHr Back pain- short acting oral meds for now, hold fentanyl.(supposedly not on fentanyl, will not resume same as had not had any issues warranting fentanyl patch) CA prostate/ HLD/ HTN/ - Resume home meds as appropriate. Start on flomax and has some post void residual DVT SCD for now, enoxaparin and coumadin post op. Full code carb consistent diet.
[2018-08-27] MEDS ORDERED: WARFARIN 4 MG TABLET PO ONE (14:30)
[2018-08-27] MEDS: ACETAMINOPHEN 325 MG TABLET PO PRN ×2 (16:07→22:28)
[2018-08-27] MEDS: INSULIN GLARGINE, HUMAN 1 UNIT/0.01 ML SQ SCH (20:34)
[2018-08-27] MEDS: SIMVASTATIN 20 MG TABLET PO SCH (20:35)
[2018-08-27] MEDS: SENNOSIDES 1 TABLET PO SCH (20:35)
[2018-08-28] MEDS: oxyCODONE HCL 5 MG TABLET PO PRN ×4 (04:35→18:45)
[2018-08-28] MEDS ORDERED: ACETAMINOPHEN 1,000 MG/100 ML BOTTLE IV ONE (05:08)
[2018-08-28] MEDS: 0.9 % SODIUM CHLORIDE 10 ML SYRINGE IV SCH ×3 (06:51→21:04)
[2018-08-28] MEDS: INSULIN LISPRO 1 UNIT/0.01 ML UNIT SQ SCH ×4 (07:12→21:04)
[2018-08-28] MEDS: DOCUSATE SODIUM 100 MG CAPSULE PO SCH ×2 (07:18→21:04)
[2018-08-28] MEDS: FUROSEMIDE 40 MG TABLET PO SCH ×2 (07:18→21:05)
[2018-08-28] MEDS: TAMSULOSIN 0.4 MG CAPSULE PO SCH (07:18)
[2018-08-28] MEDS: ACETAMINOPHEN 325 MG TABLET PO PRN ×2 (07:18→18:45)
[2018-08-28] MEDS: ASPIRIN 81 MG TAB.CHEW PO SCH (07:18)
[2018-08-28] MEDS: ALLOPURINOL 100 MG TABLET PO SCH ×2 (07:18→21:05)
[2018-08-28] MEDS: LISINOPRIL 5 MG TABLET PO SCH (07:18)
--- NOTE | 2018-08-28 10:52 | Internal Med Progress Note ---
Medical - PN: Subj Patient information: Note initiated : 08/28/18 at 10:49 am Service Date, if different from initiated Date: [] Patient: Jose Chanel a 82 y/o M admitted on 08/25/18 for Fall/Left Femur Neck Fracture. Chief Complaint: [] Interval history: Mr. Chanel is a 82 year old M with h/o multiple medical issues, presents to the ER overnight after a mech fall. He notes he fell yesterday on the curb, with his dog, hit his head, but did not loose consciousness. Neighbors called EMS and he came to the ER; He denies any dizziness, bowel bladder incontinence or any prodromal symptoms before the fall. The patient in the ER was afebrile, hemodynamically stable. Workup showed he had a left femur neck fracture, admitted to the hospital for further management. The patient does have a h/o afib, s/p ablation, supposed to be on coumadin, h/o CHF? on lasix bid, CKD , DM on insulin, pt denies any h/o CAD/ [place], no h/o CVA or TIA. Patient notes he can walk upto one mile on a flat surface, but usually walks approximately 2 blocks a day, able to walk up a block with incline if not too steep. No recent chest pain,shortness of breath. His Labs in ER show elevated wbc count, at 16K, hb 13.3, INR 1.1, sodium 141, potassium 3.9 BUN 37, creatinine 2.0, glucose 178. UA negative for UTI. Chest x-ray suggestive of a bibasilar atelectasis, EKG shows paced rhythm. I do not have the official reports about the neck CT or the head CT but according to the ER provider they have been interpreted as negative. Patient wishes to be full code 08/26 Patient seen and examined, no acute overnight events. Creatinine slightly worse 2.0-2.2. Patient overall doing well. Mildly confused. Cooperative with care. Home medications resumed 08/27 Patient seen and examined, no acute overnight events. Tolerating p.o. diet well has no complaints. Labs stable hemoglobin, creatinine improved to 2.0. Ortho has cleared pt for discharge, awaiting placement to SNF 08/28 Patient seen and examined no acute overnight events tolerating p.o. diet well he still has pain at the site of surgery. Patient has been struggling with retention of urine, has high postvoid residuals around 300-450 but is able to void freely. pt does have ckd, creat is stable, will get renal sonogram to ensure that he is not having any hydrnephrosis, he has been started on flomax, Pertinent ROS: Denies headache, dizziness Denies chest pain, palpitations Denies cough or shortness of breath Denies abdominal pain, nausea or vomiting. - Constitutional Vitals: Vital Signs Temp Pulse Resp BP Pulse Ox 98.5 F 70 20 131/60 99 08/28/18 06:44 08/28/18 03:55 08/28/18 06:44 08/28/18 06:44 08/28/18 06:44 Period Temp Pulse Resp BP Sys/Payne Pulse Ox Last 24 Hr 97.9 F-99.1 F 70-75 16-20 116-143/60-66 96-100 Intake and Output 08/27/18 08/28/18 08/28/18 21:59 05:59 13:59 Intake Total 400 / 400 240 / 240 Output Total 521 / 521 1200 / 1200 550 / 550 Balance -521 / -521 -800 / -800 -310 / -310 Weight 196 lb Intake & Output: Intake & Output 08/27/18 08/28/18 08/28/18 21:59 05:59 13:59 Intake Total 400 / 400 240 / 240 Output Total 521 / 521 1200 / 1200 550 / 550 Balance -521 / -521 -800 / -800 -310 / -310 Weight 196 lb Intake: Oral 400 / 400 240 / 240 Output: Void Amount 520 / 520 1200 / 1200 550 / 550 # of times incontinent of urine Other: Meal Breakfast Percent of Meal Consumed 100% Feeding Ability Assist with Tray Set Up Urine Appearance Clear Clear Urine Color Pale Dark Yellow Urine Odor Normal # Voids 1 Exam: Constitutional; Afebrile, cooperative, alert, not in distress. Respiratory system: Air Entry equal on both sides, No crackles or wheezing, no rhonchi. CVS- Rate rhythm regular, S1,S2 heard, no gallop, no rub. Abdomen- Soft nontender abdomen, no organomegaly, no tenderness, no guarding or rigidity, PUMPER HAND- AOOx3, moving all extremities, no gross focal deficit noted. Medical - PN: Obj Da - Labs CBC & Chem 7: 08/28/18 04:00 08/27/18 07:01 Labs: Abnormal Lab Results 08/28/18 08/28/18 08/27/18 04:00 04:00 07:01 WBC RBC Hgb 11.8 L Hct 34.7 L RDW Gran % Lymph % (Auto) Gran # Lymph # (Auto) [place] # (Auto) PT 18.5 H INR 1.5 H Carbon Dioxide 21 L Anion Gap BUN 41 H Creatinine 2.0 H Glucose 162 H 08/27/18 08/27/18 08/26/18 04:20 04:20 08:00 WBC RBC Hgb 12.2 L Hct 36.2 L RDW Gran % Lymph % (Auto) Gran # Lymph # (Auto) [place] # (Auto) PT 18.5 H INR 1.5 H Carbon Dioxide 16 L Anion Gap 23.0 H BUN 36 H Creatinine 2.2 H Glucose 221 H 08/26/18 08/26/18 08/26/18 08:00 04:05 04:05 WBC 19.2 H RBC 4.21 L Hgb 12.3 L Hct 36.5 L RDW 15.7 H Gran % 85.5 H Lymph % (Auto) 5.7 L Gran # 16.4 H Lymph # (Auto) 1.1 L [place] # (Auto) 1.7 H PT 16.1 H INR 1.3 H Carbon Dioxide Anion Gap BUN Creatinine Glucose Meds: Medications Acetaminophen (Tylenol) 650 mg PO Q6HP PRN PRN Reason: PAIN/FEVER > 101 Last Admin: 08/28/18 07:18 Dose: 650 mg Albuterol Sulfate (Ventolin) 2.5 mg NEB Q2HP PRN PRN Reason: Shortness Of Breath Allopurinol (Zyloprim) 100 mg PO BID [facility] Last Admin: 08/28/18 07:18 Dose: 100 mg Aspirin (Aspirin) 81 mg PO DAILY [facility] Last Admin: 08/28/18 07:18 Dose: 81 mg Bisacodyl (Dulcolax) 10 mg MD Q2-3DAYS PRN PRN Reason: Constipation Dextrose (Dextrose 50%) 0 ml IV UD PRN PRN Reason: Hypoglycemia Diagnostic Test (Pha) (Accu-Chek) 1 each FS ACHS [facility] Last Admin: 08/28/18 07:12 Dose: 1 each Docusate Sodium (Colace) 100 mg PO BID [facility] Last Admin: 08/28/18 07:18 Dose: 100 mg Furosemide (Lasix) 40 mg PO BID [facility] Last Admin: 08/28/18 07:18 Dose: 40 mg Hydromorphone HCl (Dilaudid) 0.5 mg IV Q2HP PRN PRN Reason: PAIN LEVEL > 6 Last Admin: 08/26/18 12:02 Dose: 0.5 mg Insulin Glargine (Lantus) 49 unit SQ [facility] Last Admin: 08/27/18 20:34 Dose: 49 unit Insulin Human Lispro (Humalog) 0 unit SQ [facility]; Protocol Last Admin: 08/28/18 07:12 Dose: Not Given Lisinopril (Zestril) 2.5 mg PO DAILY [facility] Last Admin: 08/28/18 07:18 Dose: 2.5 mg Magnesium Hydroxide (Milk Of Magnesia) 30 ml PO DAILYP PRN PRN Reason: Constipation Last Admin: 08/28/18 09:17 Dose: 30 ml Naloxone HCl (Narcan) 0.1 mg IV Q2MIN PRN PRN Reason: Opiate Reversal Ondansetron HCl (Zofran) 4 mg IV Q6HP PRN PRN Reason: Nausea And Vomiting Oxycodone HCl (Roxicodone) 5 mg PO Q4HP PRN PRN Reason: PAIN LEVEL 3-6 Last Admin: 08/28/18 09:17 Dose: 5 mg Senna (Senokot) 2 tab PO [facility] Last Admin: 08/27/18 20:35 Dose: 2 tab Simvastatin (Zocor) 20 mg PO [facility] Last Admin: 08/27/18 20:35 Dose: 20 mg Sodium Biphosphate/Sodium Phosphate (Fleets Adult) 1 dose MD Q3-4DAYS PRN PRN Reason: Constipation Sodium Chloride (Saline Flush) 10 ml IV Q8 [facility] Last Admin: 08/28/18 06:51 Dose: 10 ml Tamsulosin HCl (Flomax) 0.4 mg PO DAILY [facility] Last Admin: 08/28/18 07:18 Dose: 0.4 mg Throat Lozenges (Cepacol) 1 lozenge PO PRN PRN PRN Reason: Sore Throat Warfarin Sodium (Coumadin Per Pharmacy) 1 order PO UD TARUN Warfarin Sodium (Coumadin) 6 mg PO ONCE@1400 ONE Stop: 08/28/18 14:01 Zolpidem Tartrate (Ambien) 10 mg PO HSP PRN PRN Reason: Insomnia Medical - PN: A/P - Time Spent With Patient Total time spent is greater than 50% in coordination of care (as documented) at patient's floor/unit and/or counseling patient: - Narrative A/P Narrative: A/P Acute left femur neck fracture- Ortho consulted, Management per them, Afib- ON coumadin with subtherapeutic INR, coumadin reinitiated, dosing per pharmacy. DM- on insulin, glucose well high, pt tolerating po now, resume home dose of levemir, ssi insulin. CKD- h/o kidney donor, single kidney, baseline creat unknown, for now, IVF, avoid nephrotoxic drugs, avoid hypotensive epidsodes in the periop period. CReat back to 2.0 CHF- Patient is on lasix 40mg bid, no e/o fluid overload, resume lasix , john inhibitors. creat stable, High post void- h/o ca prostate, high post void, started on flomax, get renal sonogram to ensure no hydro if needed will consider cerrato placement. GABRIELA- cpap. CHr Back pain- short acting oral meds for now, hold fentanyl.(supposedly not on fentanyl, will not resume same as had not had any issues warranting fentanyl patch) CA prostate/ HLD/ HTN/ - Resume home meds as appropriate. Start on flomax and has some post void residual DVT SCD for now, enoxaparin and coumadin post op. Full code carb consistent diet.
[2018-08-28] MEDS ORDERED: WARFARIN 3 MG TABLET PO ONE (14:00)
--- NOTE | 2018-08-28 14:24 | Ultrasound Report ---
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 No abnormality seen in the left renal fossa. The right kidney measures 5.7 x 5.7 x 12.3 cm. There is a well-circumscribed 2.6 x 2.9 x 3.2 cm simple cyst located medially in the upper pole. Laterally in the lower pole there is a larger simple cyst which measures 5.8 x 6.1 x 6.4 cm. No solid mass is present and there is no calculus or hydronephrosis. The cortex is normal in thickness and echogenicity. Doppler shows flow urine through the right ureter into the bladder. The bladder is distended. According to the technologist the patient had emptied the bladder just prior to the examination. Estimated volume of the bladder is 429 cc. Bladder wall is uniform but borderline thickened measuring up to 3.1 mm. There is no evidence of a mass or stone within the bladder. IMPRESSION: Two simple cysts in the right kidney. The right kidney is otherwise anatomically normal. Distended urinary bladder with mild thickening of the wall. It appears the patient does not empty the bladder when he voids. This could be related to an enlarged prostate. Interpreted and Authenticated by: Josh Mckeon 08/28/18
[2018-08-28] MEDS: SENNOSIDES 1 TABLET PO SCH (21:04)
[2018-08-28] MEDS: SIMVASTATIN 20 MG TABLET PO SCH (21:05)
[2018-08-28] MEDS: INSULIN GLARGINE, HUMAN 1 UNIT/0.01 ML SQ SCH (21:05)
[2018-08-29] MEDS: ACETAMINOPHEN 325 MG TABLET PO PRN ×3 (02:40→23:13)
[2018-08-29] MEDS: oxyCODONE HCL 5 MG TABLET PO PRN ×4 (02:41→23:13)
[2018-08-29] MEDS: 0.9 % SODIUM CHLORIDE 10 ML SYRINGE IV SCH ×3 (05:44→20:22)
[2018-08-29] MEDS: HYDROmorphone 2 MG/ML VIAL IV PRN (05:45)
[2018-08-29] MEDS: INSULIN LISPRO 1 UNIT/0.01 ML UNIT SQ SCH ×4 (07:09→20:23)
[2018-08-29] MEDS: FUROSEMIDE 40 MG TABLET PO SCH ×2 (08:47→20:24)
[2018-08-29] MEDS: LISINOPRIL 5 MG TABLET PO SCH (08:47)
[2018-08-29] MEDS: DOCUSATE SODIUM 100 MG CAPSULE PO SCH ×2 (08:47→20:24)
[2018-08-29] MEDS: TAMSULOSIN 0.4 MG CAPSULE PO SCH (08:48)
[2018-08-29] MEDS: ASPIRIN 81 MG TAB.CHEW PO SCH (08:48)
[2018-08-29] MEDS: ALLOPURINOL 100 MG TABLET PO SCH ×2 (08:48→20:24)
[2018-08-29] MEDS ORDERED: WARFARIN 4 MG TABLET PO ONE (14:00)
--- NOTE | 2018-08-29 14:34 | Internal Med Progress Note ---
Medical - PN: Subj Patient information: Note initiated : 08/29/18 at 2:30 pm Service Date, if different from initiated Date: [] Patient: Jose Chanel a 82 y/o M admitted on 08/25/18 for Fall/Left Femur Neck Fracture. Chief Complaint: [] Interval history: Mr. Chanel is a 82 year old M with h/o multiple medical issues, presents to the ER overnight after a mech fall. He notes he fell yesterday on the curb, with his dog, hit his head, but did not loose consciousness. Neighbors called EMS and he came to the ER; He denies any dizziness, bowel bladder incontinence or any prodromal symptoms before the fall. The patient in the ER was afebrile, hemodynamically stable. Workup showed he had a left femur neck fracture, admitted to the hospital for further management. The patient does have a h/o afib, s/p ablation, supposed to be on coumadin, h/o CHF? on lasix bid, CKD , DM on insulin, pt denies any h/o CAD/ VT, no h/o CVA or TIA. Patient notes he can walk upto one mile on a flat surface, but usually walks approximately 2 blocks a day, able to walk up a block with incline if not too steep. No recent chest pain,shortness of breath. His Labs in ER show elevated wbc count, at 16K, hb 13.3, INR 1.1, sodium 141, potassium 3.9 BUN 37, creatinine 2.0, glucose 178. UA negative for UTI. Chest x-ray suggestive of a bibasilar atelectasis, EKG shows paced rhythm. I do not have the official reports about the neck CT or the head CT but according to the ER provider they have been interpreted as negative. Patient wishes to be full code 08/26 Patient seen and examined, no acute overnight events. Creatinine slightly worse 2.0-2.2. Patient overall doing well. Mildly confused. Cooperative with care. Home medications resumed 08/27 Patient seen and examined, no acute overnight events. Tolerating p.o. diet well has no complaints. Labs stable hemoglobin, creatinine improved to 2.0. Ortho has cleared pt for discharge, awaiting placement to SNF 08/28 Patient seen and examined no acute overnight events tolerating p.o. diet well he still has pain at the site of surgery. Patient has been struggling with retention of urine, has high postvoid residuals around 300-450 but is able to void freely. pt does have ckd, creat is stable, will get renal sonogram to ensure that he is not having any hydrnephrosis, he has been started on flomax, 08/29 Pt seen examined, no acute ovenight issues awaiting discharge has no complaints Pertinent ROS: Denies headache, dizziness Denies chest pain, palpitations Denies cough or shortness of breath Denies abdominal pain, nausea or vomiting. - Constitutional Vitals: Vital Signs Temp Pulse Resp BP Pulse Ox 97.8 F 70 20 99/60 95 08/29/18 11:49 08/29/18 04:00 08/29/18 11:49 08/29/18 11:49 08/29/18 11:49 Period Temp Pulse Resp BP Sys/Payne Pulse Ox Last 24 Hr 97.4 F-99.3 F 70-78 20-20 99-133/60-73 95-100 Intake and Output 08/29/18 08/29/18 08/29/18 05:59 13:59 21:59 Intake Total 650 / 650 120 / 120 Output Total 300 / 300 601 / 601 Balance 350 / 350 -481 / -481 Intake & Output: Intake & Output 08/29/18 08/29/18 08/29/18 05:59 13:59 21:59 Intake Total 650 / 650 120 / 120 Output Total 300 / 300 601 / 601 Balance 350 / 350 -481 / -481 Intake: Oral 650 / 650 120 / 120 Output: Void Amount 300 / 300 600 / 600 # of times incontinent of urine Other: Meal Lunch Percent of Meal Consumed 100% Feeding Ability Independent Urine Appearance Clear Clear Urine Color Pale Dark Yellow Urine Odor Normal Normal Stool Size Large Stool Color Brown Stool Consistency Formed # Bowel Movements 1 Exam: Constitutional; Afebrile, cooperative, alert, not in distress. Respiratory system: Air Entry equal on both sides, No crackles or wheezing, no rhonchi. CVS- Rate rhythm regular, S1,S2 heard, no gallop, no rub. 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 Medical - PN: Obj Da - Labs CBC & Chem 7: 08/28/18 04:00 08/27/18 07:01 Labs: Abnormal Lab Results 08/29/18 08/28/18 08/28/18 04:00 04:00 04:00 Hgb 11.8 L Hct 34.7 L PT 20.5 H 18.5 H INR 1.7 H 1.5 H Carbon Dioxide BUN Creatinine Glucose 08/27/18 08/27/18 08/27/18 07:01 04:20 04:20 Hgb 12.2 L Hct 36.2 L PT 18.5 H INR 1.5 H Carbon Dioxide 21 L BUN 41 H Creatinine 2.0 H Glucose 162 H Meds: Medications Acetaminophen (Tylenol) 650 mg PO Q6HP PRN PRN Reason: PAIN/FEVER > 101 Last Admin: 08/29/18 10:59 Dose: 650 mg Albuterol Sulfate (Ventolin) 2.5 mg NEB Q2HP PRN PRN Reason: Shortness Of Breath Allopurinol (Zyloprim) 100 mg PO BID [facility] Last Admin: 08/29/18 08:48 Dose: 100 mg Aspirin (Aspirin) 81 mg PO DAILY [facility] Last Admin: 08/29/18 08:48 Dose: 81 mg Bisacodyl (Dulcolax) 10 mg CA Q2-3DAYS PRN PRN Reason: Constipation Dextrose (Dextrose 50%) 0 ml IV UD PRN PRN Reason: Hypoglycemia Diagnostic Test (Pha) (Accu-Chek) 1 each FS [facility] Last Admin: 08/29/18 12:02 Dose: 1 each Docusate Sodium (Colace) 100 mg PO BID [facility] Last Admin: 08/29/18 08:47 Dose: 100 mg Furosemide (Lasix) 40 mg PO BID [facility] Last Admin: 08/29/18 08:47 Dose: 40 mg Hydromorphone HCl (Dilaudid) 0.5 mg IV Q2HP PRN PRN Reason: PAIN LEVEL > 6 Last Admin: 08/29/18 05:45 Dose: 0.5 mg Insulin Glargine (Lantus) 49 unit SQ [facility] Last Admin: 08/28/18 21:05 Dose: 49 unit Insulin Human Lispro (Humalog) 0 unit SQ [facility]; Protocol Last Admin: 08/29/18 12:02 Dose: Not Given Lisinopril (Zestril) 2.5 mg PO DAILY [facility] Last Admin: 08/29/18 08:47 Dose: 2.5 mg Magnesium Hydroxide (Milk Of Magnesia) 30 ml PO DAILYP PRN PRN Reason: Constipation Last Admin: 08/28/18 09:17 Dose: 30 ml Naloxone HCl (Narcan) 0.1 mg IV Q2MIN PRN PRN Reason: Opiate Reversal Ondansetron HCl (Zofran) 4 mg IV Q6HP PRN PRN Reason: Nausea And Vomiting Oxycodone HCl (Roxicodone) 5 mg PO Q4HP PRN PRN Reason: PAIN LEVEL 3-6 Last Admin: 08/29/18 13:45 Dose: 5 mg Senna (Senokot) 2 tab PO HS [facility] Last Admin: 08/28/18 21:04 Dose: 2 tab Simvastatin (Zocor) 20 mg PO HS [facility] Last Admin: 08/28/18 21:05 Dose: 20 mg Sodium Biphosphate/Sodium Phosphate (Fleets Adult) 1 dose CA Q3-4DAYS PRN PRN Reason: Constipation Sodium Chloride (Saline Flush) 10 ml IV Q8 [facility] Last Admin: 08/29/18 13:45 Dose: 10 ml Tamsulosin HCl (Flomax) 0.4 mg PO DAILY [facility] Last Admin: 08/29/18 08:48 Dose: 0.4 mg Throat Lozenges (Cepacol) 1 lozenge PO PRN PRN PRN Reason: Sore Throat Warfarin Sodium (Coumadin Per Pharmacy) 1 order PO UD [facility] Zolpidem Tartrate (Ambien) 10 mg PO HSP PRN PRN Reason: Insomnia Medical - PN: A/P - Time Spent With Patient Total time spent is greater than 50% in coordination of care (as documented) at patient's floor/unit and/or counseling patient: - Narrative A/P Narrative: A/P Acute left femur neck fracture- Ortho consulted, Management per them, Afib- ON coumadin with subtherapeutic INR, coumadin reinitiated, dosing per pharmacy. DM- on insulin, glucose well high, pt tolerating po now, resume home dose of levemir, ssi insulin. CKD- h/o kidney donor, single kidney, baseline creat unknown, for now, IVF, avoid nephrotoxic drugs, avoid hypotensive epidsodes in the periop period. CReat back to 2.0 CHF- Patient is on lasix 40mg bid, no e/o fluid overload, resume lasix , john inhibitors. creat stable, High post void- h/o ca prostate, high post void, started on flomax, get renal sonogram to ensure no hydro if needed will consider cerrato placement. GABRIELA- cpap. CHr Back pain- short acting oral meds for now, hold fentanyl.(supposedly not on fentanyl, will not resume same as had not had any issues warranting fentanyl patch) CA prostate/ HLD/ HTN/ - Resume home meds as appropriate. Start on flomax and has some post void residual DVT on coumadin Full code carb consistent diet. No change in plan , awaiting discharge to SNF
[2018-08-29] MEDS: INSULIN GLARGINE, HUMAN 1 UNIT/0.01 ML SQ SCH (20:23)
[2018-08-29] MEDS: SENNOSIDES 1 TABLET PO SCH (20:24)
[2018-08-29] MEDS: SIMVASTATIN 20 MG TABLET PO SCH (20:24)
[2018-08-30] MEDS: 0.9 % SODIUM CHLORIDE 10 ML SYRINGE IV SCH (07:02)
[2018-08-30] MEDS: INSULIN LISPRO 1 UNIT/0.01 ML UNIT SQ SCH ×2 (07:06→11:24)
[2018-08-30] MEDS: TAMSULOSIN 0.4 MG CAPSULE PO SCH (07:20)
[2018-08-30] MEDS: FUROSEMIDE 40 MG TABLET PO SCH (07:20)
[2018-08-30] MEDS: oxyCODONE HCL 5 MG TABLET PO PRN ×2 (07:21→11:25)
[2018-08-30] MEDS: ASPIRIN 81 MG TAB.CHEW PO SCH (07:21)
[2018-08-30] MEDS: ALLOPURINOL 100 MG TABLET PO SCH (07:21)
[2018-08-30] MEDS: LISINOPRIL 5 MG TABLET PO SCH (07:21)
[2018-08-30] MEDS: DOCUSATE SODIUM 100 MG CAPSULE PO SCH (07:21)
[2018-08-30] MEDS: ACETAMINOPHEN 325 MG TABLET PO PRN (11:25)
--- NOTE | 2018-08-30 12:07 | Discharge Summary ---
Medical - DS: Prov Patient information: Note initiated : 08/30/18 at 12:05 pm Service Date, if different from initiated Date: [] Patient: Jose Chanel 82 y/o M admitted on 08/25/18 for Fall/Left Femur Neck Fracture. Chief Complaint: [] Date of admission: 08/25/18 03:24 Discharge date: 08/30/18 Primary care physician: Joaquin Serrano Consults: 08/25/18 Consult to Physician [CONS] Stat Comment: Consulting Provider: Raymond Claire Reason For Exam: Physician to Consult Consult to Physician [CONS] Stat Comment: Consulting Provider: Daryn Whatley Reason For Exam: Physician to Consult Discharging clinician: Daryn Whatley Medical - DS: Meds - Discharge Medications Prescriptions: HYDROcodone/APAP 5/325MG [[place] 5-325Mg] 1 tab PO TIDP PRN #30 tab PRN Reason: Pain Active and Home Medications: Home Medications Allopurinol [Zyloprim] 100 mg PO BID 08/24/18 [History Confirmed 08/25/18 Last Taken 08/24/18] Aspirin [Adult Low Dose Aspirin EC] 81 mg PO DAILY 08/24/18 [History Confirmed 08/25/18 Last Taken 08/24/18] Furosemide [Lasix] 40 mg PO BID 08/24/18 [History Confirmed 08/25/18 Last Taken 08/24/18] HYDROcodone/APAP 5/325MG [[place] 5-325Mg] 1 tab PO TIDP PRN 08/24/18 [History Confirmed 08/25/18 Last Taken 08/24/18] Insulin Detemir [Levemir] 49 unit SQ HS 08/24/18 [History Confirmed 08/25/18 Last Taken 08/24/18] Lisinopril [Zestril] 2.5 mg PO DAILY 08/24/18 [History Confirmed 08/25/18 Last Taken 08/24/18] Pravastatin [Pravachol] 40 mg PO HS 08/24/18 [History Confirmed 08/25/18 Last Taken 08/24/18] Warfarin [Coumadin] 4 mg PO DAILY 08/24/18 [History Confirmed 08/25/18 Last Taken 08/24/18] Zolpidem [Ambien] 10 mg PO HSP PRN 08/24/18 [History Confirmed 08/25/18 Last Taken Unknown] Fentanyl 12.5 mcg TD 08/25/18 [History Last Taken Unknown] Medical - DS: Hosp Hospital course: Mr. Chanel is a 82 year old M with h/o multiple medical issues, presents to the ER overnight after a [facility]. He notes he fell yesterday on the curb, with his dog, hit his head, but did not loose consciousness. Neighbors called EMS and he came to the ER; He denies any dizziness, bowel bladder incontinence or any prodromal symptoms before the fall. The patient in the ER was afebrile, hemodynamically stable. Workup showed he had a left femur neck fracture, admitted to the hospital for further management. The patient does have a h/o afib, s/p ablation, supposed to be on coumadin, h/o CHF? on lasix bid, CKD , DM on insulin, pt denies any h/o CAD/ [place], no h/o CVA or TIA. His Labs in ER show elevated wbc count, at 16K, hb 13.3, INR 1.1, sodium 141, potassium 3.9 BUN 37, creatinine 2.0, glucose 178. UA negative for UTI. Chest x-ray suggestive of a bibasilar atelectasis, EKG shows paced rhythm. I do not have the official reports about the neck CT or the head CT but according to the ER provider they have been interpreted as negative. patient admitted to the hospital for management of hip fracture, s/p hemiarthroplasty, pt tolerated the procedure well, post op dvt prophylaxis by coumadin (pt alreayd on coumadin), Post op pain management with hydrocodone. Pt had fentanyl listed on his med list, but I dont think a long acting medication is warranted Renal failure- creat is stable at 2.0, BPH/ Ca prostate- patient has some post void residuals, he feels he is able to void ok, I have started him on oral tamsulosin, will need urology follow up on discharge. high post voids could be also from recent surgery and use of pain meds. Rest of stay in the hospital was unremarkable. I have continued most of his home med list. Discharge diagnosis: hip fracture - Time Spent with Patient Total time spent providing and/or coordinating discharge services: Greater than 30 minutes Medical - DS: Exam - Constitutional Vitals: Vital Signs Temp Pulse Resp BP Pulse Ox 08/30/18 11:07 98.6 F 67 18 120/58 95 08/30/18 08:09 98.6 F 67 18 120/58 95 08/30/18 06:50 98.2 F 16 125/60 96 08/30/18 03:50 98.0 F 70 16 127/63 97 08/29/18 23:33 98.6 F 74 18 123/66 98 08/29/18 20:00 98.1 F 76 16 142/64 99 08/29/18 15:48 98.2 F 18 121/65 100 Intake and Output 08/29/18 08/30/18 08/30/18 21:59 05:59 13:59 Intake Total 1200 / 1200 800 / 800 120 / 120 Output Total 650 / 650 975 / 975 Balance 1200 / 1200 150 / 150 -855 / -855 Intake: Oral 1200 / 1200 800 / 800 120 / 120 Output: Void Amount 650 / 650 975 / 975 Other: Meal Dinner Percent of Meal Consumed 100% Feeding Ability Independent Urine Appearance Clear Clear Urine Color Bright Yellow Dark Yellow Urine Odor Normal Weight 190 lb Additional comments: Constitutional; Afebrile, cooperative, alert, not in distress. Respiratory system: Air Entry equal on both sides, No crackles or wheezing, no rhonchi. CVS- Rate rhythm regular, S1,S2 heard, no gallop, no rub. 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 Medical - DS: Data Labs on day of discharge: Labs from last 24 hours 08/30/18 04:12 PT 26.2 H INR 2.4 H Medical - DS: A/P - Patient/Caregiver Discharge Instructions Activity: as per physical therapy Diet: Cardiac, Consistent Carbohydrate Additional Instructions: Follow up with Dr Palmer in 2 -4 weeks for ca prostate and bph symptoms. Follow up with ortho as scheduled. Hip surgery precautions go to the ER if worsening condition, chest pain, shortness of breath or any other acute concern. countinue coumadin and check INR in 3 days. Other Amb Orders: Physical Therapy at Discharge - [facility] Location: None 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 - Follow up Plan Follow up with: Raymond Claire MD [Physician] - Joaquin Serrano DO [Primary Care Provider] - Disposition: Xfer SNF Prognosis: Fair Rehab Potential: Fair I certify that the patient requires SNF services: Yes Overall status at discharge: patient is progressing back to baseline
== END 2018-08-30 12:48 | DRG 470 ==
LOC: ED 23:15 → MEDSUR 08-25 03:24
PROVIDERS: ADMIT Internal Medicine; ATTEND Internal Medicine
PROC: HEMIHIP (2018-08-25 14:37)
CPT/HCPCS: 73502; 80047; 84145; 85014; 97161; 97167; 99223; 99231; A6197; J0131; J0330; J0690; J1100; J1170; J1815; J1817; J2001; J2250; J2405; J2800; J3010; J7030; J7120